=== PATIENT | female | born 1970 | race Caucasian/White ===

== ENCOUNTER 2016-11-23 12:00 | Inpatient (IN) | payer OTHER ==
--- NOTE | ~2016-11-23 | PN ---
Unit #: [id number] #: [id number] Patient: SOFYA BRADFORD [id number] [facility] [address] [place] [address] [id number] MR#: [id number] NAME: SOFYA BRADFORD. ROOM: P209 Age: 46 Sex: F Admission Date: 11/23/2016 : 1970 Attending Physician: Jevon Huber M.D. Admitting Physician: Jevon Huber M.D. Primary Care Physician: Kurt Doctor Not In System [facility] PROGRESS NOTES DATE 11/24/2016 DISCUSSION Ms. Bradford is a 46-year-old white female with mood disorder and alcohol dependence who was seen today and chart was reviewed and case was discussed with the staff. She has been anxious, withdrawn, depressed and rather seclusive to herself and described herself to be in distress and discomfort as she goes through detox. Meanwhile, she has been taking medications and tolerating them fairly well with no reported side effects. MENTAL STATUS EXAMINATION Middle-aged white female who was casually dressed with fair personal hygiene, appears to be in no acute distress or discomfort. She was awake and alert on interaction with intact orientation. Her mood was anxious and depressed with congruent affect. She reports having suicidal ideation. She denies any homicidal ideations. Also, denies any auditory or visual hallucinations. Her insight and judgement remains slightly impaired. TREATMENT PLAN 1. We will continue her on her current medications and treatment protocol. We will monitor her response to the medication and make further adjustments as needed. 2. We will continue to follow up. Dictated by... Vignesh Mckenzie/arcelia TD: 11/25/2016 03:05 JOB #: [id number] Unit #: [id number] #: [id number] Patient: SOFYA BRADFORD SUSAN PROGRESS NOTES Page 1 of 1 X Jevon Huber MD PROGRESS NOTE
--- NOTE | ~2016-11-23 | DS ---
Unit #: [id number] #: [id number] Patient: [facility] [id number] [facility] [address] [place] [address] [id number] I MR#: [id number] NAME: SOFYA BRADFORD ROOM: P209 Age: 46 Sex: F Admission Date: 11/23/2016 : 1970 Discharge Date: 11/27/2016 Attending Physician: Jevon Huber M.D. Primary Care Physician: Generic Doctor Not In System DISCHARGE SUMMARY IDENTIFYING DATA Ms. Bradford is a 46-year-old single white female who is a resident of [place], [place] and was self-referred to the hospital on a voluntary basis. DISCHARGE DIAGNOSES Psychiatric: Alcohol dependence, moderate, in acute withdrawal. Major depressive disorder, recurrent, moderate, without psychotic features. Medical: Hypertension, fibromyalgia, colitis, chronic pain. Stressors: Moderate psychosocial stressors. HISTORY OF PRESENT ILLNESS Please see initial psychiatric evaluation for details. PAST PSYCHIATRIC HISTORY Please see initial psychiatric evaluation for details. PAST MEDICAL HISTORY Please see initial psychiatric evaluation for details. HOSPITAL COURSE The [facility] and was oriented to the hospital environment. Routine p.r.n. medications were initiated and she was started back on her home medications. The medications were adjusted and she was maintained on her current regimen and alcohol detox protocol was initiated and she was closely monitored. She was taking the medications regularly, was tolerating them fairly well and was wanting to go home and wanting to come to the outpatient treatment program and was interested in the Vivitrol injection program and as such, it was decided that she will be discharged home and will step down to the outpatient treatment program. DISCHARGE CONDITION Stable. PROGNOSIS Fair. Dictated by... Jevon Huber M.D. Unit #: [id number] #: [id number] Patient: SOFYA BRADFORD IAA/modl TD: 11/27/2016 07:55 JOB #: [id number] DISCHARGE SUMMARY Page 1 of 1 X Jevon Huber MD X DISCHARGE SUMMARY
--- NOTE | ~2016-11-23 | PN ---
Unit #: [id number] #: [id number] Patient: SOFYA BRADFORD [id number] [facility] [address] [place] [address] [id number] I MR#: [id number] NAME: SOFYA BRADFORD. ROOM: P209 Age: 46 Sex: F Admission Date: 11/23/2016 : 1970 Attending Physician: Jevon Huber M.D. Admitting Physician: Jevon Huber M.D. Primary Care Physician: Kurt Doctor Not In System [facility] PROGRESS NOTES DATE 11/26/2016 DISCUSSION Ms. Bradford is a 46-year-old white female who was seen today and chart was reviewed and case was discussed with the staff. She has been anxious, withdrawn and rather seclusive to herself. Meanwhile, she has been cooperative with treatment recommendations as she has been taking the medications and tolerating them fairly well with no reported side effects. MENTAL STATUS EXAMINATION Middle-aged white female who was casually dressed with fair personal hygiene, appears to be in no acute distress or discomfort. She was awake and alert on interaction with intact orientation. Her mood was anxious with congruent affect. She denies any suicidal or homicidal ideations. Her insight and judgement remains slightly impaired. TREATMENT PLAN 1. We will continue her on her current medications and treatment protocol. We will monitor her response to the medication and make further adjustments as needed. 2. We will continue to follow up. Dictated by... Vignesh Mckenzie/arcelia TD: 11/27/2016 03:46 JOB #: [id number] Unit #: [id number] #: [id number] Patient: SOFYA BRADFORD SUSAN PROGRESS NOTES Page 1 of 1 X Jevon Huber MD X PROGRESS NOTE
--- NOTE | ~2016-11-23 | PN ---
Unit #: [id number] #: [id number] Patient: SOFYA BRADFORD [id number] [facility] [address] [place] [address] [id number] I MR#: [id number] NAME: SOFYA BRADFORD. ROOM: P209 Age: 46 Sex: F Admission Date: 11/23/2016 : 1970 Attending Physician: Jevon Huber M.D. Admitting Physician: Jevon Huber M.D. Primary Care Physician: Kurt Doctor Not In System [facility] PROGRESS NOTES DATE OF SERVICE 11/25/2016 DISCUSSION Ms. Bradford is a 46-year-old white female with alcohol dependence and mood disorder who was seen today. Chart was reviewed and case was discussed with the staff. She has been anxious and withdrawn though has not shown any agitation or irritability and has been cooperative with the treatment recommendations and has been taking the medications and tolerating them fairly well with no reported side effects. MENTAL STATUS EXAMINATION Middle-aged white female who is casually dressed with fair personal hygiene, appears to be in no acute distress or discomfort. She was awake and alert on interaction with intact orientation. Her mood is anxious with a congruent affect. Her speech is slow and restricted in content. She denies any suicidal or homicidal ideations and also denies any auditory or visual hallucinations. Her insight and judgment remain slightly impaired. TREATMENT PLAN 1. We will continue her on her current medications and treatment protocol. We will monitor her response to the medications and make further adjustments as needed. 2. We will continue to follow up. Dictated by... Vignesh Mckenzie/bhaskar TD: 11/25/2016 15:04 JOB #: [id number] Unit #: [id number] #: [id number] Patient: SOFYA BRADFORD PROGRESS NOTES Page 1 of 1 X Jevon Huber MD PROGRESS NOTE
--- NOTE | ~2016-11-23 | PA ---
Unit #: [id number] #: [id number] Patient: SOFYA BRADFORD [id number] [facility] [address] [place] [address] [id number] MR#: [id number] NAME: SOFYA BRADFORD. ROOM: P209 Age: 46 Sex: F Admission Date: 11/23/2016 : 1970 Date of Assessment: 11/23/2016 Attending Physician: Jevon Huber M.D. Admitting Physician: Jevon Huber M.D. Primary Care Physician: Generic Doctor Not In System PSYCHIATRIC ASSESSMENT DATE OF SERVICE 11/23/2016. IDENTIFYING DATA Ms. Bradford is a 46-year-old, single, white female, who is a resident of [place], [place] and was self-referred to the hospital on a voluntary basis. CHIEF COMPLAINT "I need treatment for alcoholism." HISTORY OF PRESENT ILLNESS Ms. Bradford is a 46-year-old white female, who was self-referred to the hospital, who was recently discharged from the outpatient treatment program. However, she ended up relapsing and reports that she needs help with alcoholism and "I was in the [facility] in 10/2016, but I did not complete the program. I was sober for 5 months and I relapsed a month ago. I've been drinking a fifth of vodka daily and my last drink was earlier this morning. I'm having significant withdrawal symptoms." She does report increasing depression, anxiety, irritability, restlessness, feelings of hopelessness and helplessness, and denies any current suicidal ideations, though she reports history of suicide in the past. SUBSTANCE ABUSE HISTORY The patient reports long history of alcohol dependence stating that she has been drinking ever since she was 7 years old and currently has been drinking a fifth of vodka on daily basis and denies any other drug abuse. PAST PSYCHIATRIC HISTORY The patient has had a history of multiple inpatient psychiatric and chemical dependency treatments [facility] and currently she is not active in any treatment program. Review of the medical records indicate that she is supposed to be on Prozac and Neurontin, though it is not clear if she has been compliant with medications. PAST MEDICAL HISTORY Hypertension, fibromyalgia, colitis, chronic pain. ALLERGIES Codeine and latex. PERSONAL AND SOCIAL HISTORY A 46-year-old white female, who reports that she is single and lives at Unit #: [id number] #: [id number] Patient: SOFYA BRADFORD home with her parents and has fairly decent social support system. MENTAL STATUS EXAMINATION Middle-aged white female, who was casually dressed with fair personal hygiene, appears to be in no acute distress or discomfort. She was awake and alert on interaction with intact orientation to time, place, and person. Her mood was anxious and depressed with a congruent affect. Her speech was slow and goal directed. She denies any suicidal or homicidal ideations and also denies any auditory or visual hallucinations. Her insight and judgment remain significantly impaired. DIAGNOSTIC IMPRESSION Psychiatric: Alcohol dependence, moderate and acute withdrawals; major depressive disorder, recurrent, moderate, without psychotic features. Medical: Hypertension, fibromyalgia, colitis, chronic pain. Stressors: Moderate psychosocial stressors. TREATMENT PLAN 1. The patient has presented with a history of mood disorder and substance abuse and has been decompensating and will need inpatient hospitalization for detoxification, safety, and stabilization. We will start her back on her home medications. We will adjust the medications and monitor response. 2. Supportive therapy was provided to the patient. 3. Safe, structured, and nourishing environment will be provided. ESTIMATED LENGTH OF STAY 5 to 7 days. ABILITY TO HELP SELF Limited. WILLINGNESS TO HELP SELF The patient appears to be willing to help self. STRENGTHS 1. Communicative. 2. Cooperative. PROBLEMS 1. Chronic dysphoric symptoms. 2. Poor social support system. DISCHARGE CRITERIA This will be contingent upon the patient's ability to show resolution of her depression and anxiety and her ability to stay safe to herself, particularly after discharge from the hospital. Dictated by... Jevon Huber M.D. CECY/deloris TD: 11/24/2016 08:45 Unit #: [id number] #: [id number] Patient: SOFYA BRADFORD JOB #: [id number] PSYCHIATRIC ASSESSMENT Page 1 of 1 X Jevon Huber MD X PSYCHIATRIC ASSESSMENT
--- NOTE | ~2016-11-23 | HP ---
Unit #: [id number] #: [id number] Patient: CANDICE BRADFORD [id number] [place] [address] [id number] I MR#: [id number] NAME: CANDICE BRADFORD. ROOM: P209 Age: 46 Sex: F Admission Date: 11/23/2016 : 1970 Attending Physician: Jevon Huber M.D. Admitting Physician: Jevon Huber M.D. Primary Care Physician: Kurt Doctor Not In System HISTORY AND PHYSICAL HISTORY OF PRESENT ILLNESS Candice is a 46 year old admitted to [address] [place] [address] because of her continued abuse of alcohol. PAST MEDICAL HISTORY 1. Long history of alcohol abuse. 2. Obesity. 3. High blood pressure. 4. History of migraine headaches. PAST SURGICAL HISTORY 1. Right carpal tunnel release. 2. Oral. ALLERGIES Codeine, latex. SOCIAL HISTORY Smokes 1 1/2 packs per day. Drinks a pint of vodka on a daily basis and denies illicit drug use. FAMILY HISTORY Medically noncontributory. REVIEW OF SYSTEMS CONSTITUTIONAL: No fever or chills. HEENT: Denies any sore throat, ear pain or runny nose. CARDIOVASCULAR: Denies chest pain, irregular heart rhythm or palpitations. CHEST: Denies shortness of breath or cough. No hemoptysis. GASTROINTESTINAL: Denies nausea, vomiting, diarrhea or chronic constipation. ENDOCRINE: Denies history of increased thirst or urination. No recent significant weight loss or gain. GENITOURINARY: Denies dysuria, frequency, or hematuria. SKIN: Denies any rashes. HEMATOLOGIC: Denies history of increased bleeding or bruising. MUSCULOSKELETAL: Denies any hot, swollen joints. No generalized muscle pain. NEUROLOGIC: Denies problems with vision or speech. No frequent, severe headaches. No numbness, tingling or weakness in any extremities. Denies loss of bladder or bowel control. Unit #: [id number] #: [id number] Patient: CANDICE BRADFORD CURRENT MEDICATIONS 1. Detox protocol 2. Neurontin 800 mg q.i.d. 3. Seroquel 100 mg q.h.s. 4. Amitriptyline 100 mg q.h.s. PHYSICAL EXAMINATION GENERAL: Alert, obese, in no apparent distress. VITAL SIGNS: Blood pressure 130/88, heart rate 80, respirations 16, temperature 98.6. WEIGHT: 210 pounds. SKIN: Warm and dry without rash or lesion. HEENT: Normocephalic. TMs not viewed. Oral and nasal passages clear. Conjunctivae clear. Pupils equal, round and reactive to light and accommodation. Extraocular movements intact. NECK: Supple without lymphadenopathy or thyromegaly. HEART: Regular rate and rhythm without murmur. LUNGS: Clear. ABDOMEN: Soft, nontender. : Not done. EXTREMITIES: No evidence of cyanosis, clubbing or edema. Moves all extremities without focal deficit. NEUROLOGICAL: Grossly within normal limits. Cranial Nerves: II: Visual chen are intact. III, IV AND : Extraocular movements are intact. Pupils are equal, round and reactive to light. V: Facial sensation is grossly normal. VII: Facial movements and expression are normal. VIII: Auditory acuity grossly intact. IX, X: Uvula is midline. Phonation is normal. XI: Patient shrugs shoulders and turns head normally. XII: Tongue protrudes in the midline. Sensory and Motor Function: Sensory and motor sensation is grossly normal. Motor: moves all extremities well. Coordination: Gait is normal. Deep Tendon Reflexes: Intact. IMPRESSION Psychiatric admission RECOMMENDATIONS PSYCHIATRIC: Per psychiatrist. MEDICAL: I see no contraindications to participating in facility's activities. MEDICAL PROGNOSIS Good. MEDICAL CONDITION Stable. Dictated by... Eneida Torres P.A.-C. for Vignesh Miller/arcelia Unit #: [id number] #: [id number] Patient: CANDICE BARDFORD TD: 11/24/2016 01:29 JOB #: [id number] HISTORY AND PHYSICAL Page 1 of 1 X Eneida Torres HISTORY AND PHYSICAL
--- NOTE | ~2016-11-23 | TN ---
Unit #: [id number] #: [id number] Patient: SOFYA BRADFORD [id number] [place] [address] [id number] I MR#: [id number] NAME: SOFYA BRADFORD. ROOM: P209 Age: 46 Sex: F Admission Date: 11/23/2016 : 1970 Discharge Date: 11/27/2016 Attending Physician: Jevon Huber M.D. Primary Care Physician: Generic Doctor Not In System LOC TRANSFER NOTE DATE OF SERVICE: 12/01/2016 DATE OF SERVICE 12/01/2016. HISTORY OF PRESENT ILLNESS Ms. Wu is a 46-year-old single white female, who is a resident of [place], [place], and is known to us from previous multiple encounters and was stepped down to the outpatient treatment program from the adult inpatient psychiatric and chemical dependency treatment program at [facility], where she was hospitalized under my care from 11/23/2016 to 11/27/2016 and was initially brought to the hospital with relapse on alcohol leading to increasing depression, anxiety, and suicidal thoughts and was medically detoxed from alcohol and was stepped down to the outpatient treatment program; where on evaluation by me, the patient reports that she has been doing fairly well and has had craving since she has been out of the hospital, but she has not had any relapses. She also reports improvement in her depression and anxiety and denies any current suicidal ideations, intent, or plan. SUBSTANCE ABUSE HISTORY The patient has had a history of alcohol dependence and reports that she has been drinking since she was 7 years old and currently has been drinking a fifth of vodka on a daily basis and denies any other drug abuse. PAST PSYCHIATRIC HISTORY The patient has had a history of multiple inpatient psychiatric hospitalizations as well as outpatient treatment program at [facility] and has been diagnosed and treated for mood disorder as well as alcohol dependence and is currently on a combination of Seroquel, Neurontin, and Elavil. PAST MEDICAL HISTORY The patient's medical history is significant for hypertension, fibromyalgia, colitis, and chronic pain. ALLERGIES Codeine and latex. PERSONAL AND SOCIAL HISTORY A 46-year-old white female, who reports that she is single and lives at home with her parents and has fairly decent social support system. Unit #: [id number] #: [id number] Patient: SOFYA BRADFORD MENTAL STATUS EXAMINATION Young white female, who was casually dressed with fair personal hygiene, appears to be in no acute distress or discomfort. She was awake and alert on interaction with intact orientation. Her mood was anxious and depressed with a congruent affect. She denies any suicidal or homicidal ideations and also denies any auditory or visual hallucinations. Her insight and judgment remain slightly impaired. DIAGNOSTIC IMPRESSION Psychiatric: Major depressive disorder, recurrent, moderate, without psychotic features and alcohol dependence, moderate. Medical: Hypertension, fibromyalgia, colitis, and chronic pain. Stressors: Moderate psychosocial stressors. TREATMENT PLAN 1. The patient has presented with a history of mood disorder and substance abuse and has been decompensating and will need inpatient hospitalization for safety and stabilization. We will start her back on her home medications and we will adjust the medications and monitor response. 2. Supportive therapy was provided to the patient. 3. Safe, structured, and nourishing environment will be provided. ESTIMATED LENGTH OF STAY 5 to 7 days. ABILITY TO HELP SELF Limited. WILLINGNESS TO HELP SELF The patient appears to be willing to help self. STRENGTHS 1. Communicative. 2. Cooperative. PROBLEMS 1. Chronic dysphoric symptoms. 2. Poor social support system. DISCHARGE CRITERIA This will be contingent upon the patient's ability to show resolution of her depression and anxiety and her ability to stay safe to herself, particularly after discharge from the program. Dictated by... Vignesh Mckenzie/deloris TD: 12/01/2016 20:47 JOB #: [id number] Unit #: [id number] #: [id number] Patient: SOFYA BRADFORD LOC TRANSFER NOTE Page 1 of 1 X Jevon Huber MD X LOC TRANSFER NOTE
[2016-11-24 09:44] LABS: BASOPHIL# 0.1 X10e3 (0-0.3); BASOPHIL% 0.9 % (0-2.5); EOSINOPHIL# 0.4 X10e3 (0-0.7); EOSINOPHIL% 5.1 % (0.0-7.0); HEMATOCRIT 36.3 % (35.0-45.0); HEMOGLOBIN 12.2 gm/dL (12.0-16.0); LYMPHOCYTE# 1.3 X10e3 (1.0-3.5); LYMPHOCYTE% 16.7 % (17.0-45.0); MEAN CELL VOLUME 94.1 FL (83-96); MEAN CORPUSCULAR HEMOGLOBIN 31.6 PG (28-34); MEAN CORPUSCULAR HGB CONC 33.6 g/dL (30-36); MEAN PLATELET VOLUME 7.7 FL (6.5-11.5); MONOCYTE# 0.5 X10e3 (0-1.0); NEUTROPHIL# 5.5 X10e3 (1.5-7.1); NEUTROPHIL% 70.3 % (40-75); PLATELET COUNT 347 X10e3 (140-420); RED BLOOD COUNT 3.85 X10e (3.90-5.30); RED CELL DISTRIBUTION WIDTH 14.1 % (11.0-15.5); WHITE BLOOD COUNT 7.9 X10e3 (4.0-10.5)
[2016-11-24 09:53] LABS: DIFF IND NO
[2016-11-24 10:30] LABS: ALBUMIN SERUM 3.5 g/dL (3.5-5.0); BILIRUBIN,TOTAL 0.4 mg/dL (0.2-2.0); BUN/CREATININE RATIO 21.42; CALCIUM SERUM 9.6 mg/dL (8.4-10.2); CREATININE SERUM 0.7 mg/dL (0.6-1.4); GLOM FILT RATE Estimated 103.9 mL/min (>60); POTASSIUM 4.3 mmol/L (3.5-5.1); PROTEIN TOTAL SERUM 6.6 g/dL (6.0-8.3)
[2016-11-25 12:53] LABS: URINE APPEARANCE CLEAR; URINE BILIRUBIN NEG (NEG); URINE BLOOD NEG (NEG); URINE COLOR DK YELLOW; URINE GLUCOSE NEG (NEG); URINE KETONE NEG (NEG); URINE LEUKOCYTE ESTERASE NEG (NEG); URINE NITRATE NEG (NEG); URINE PROTEIN NEG (NEG); URINE SPECIFIC GRAVITY 1.008 (1.003-1.035); URINE UROBILINOGEN 0.2 MG/DL (NEG)
[2016-11-25 13:34] LABS: AMPHETAMINE NEG (NEG); BARBITURATES NEG (NEG); BENZODIAZEPINES POS (NEG); COCAINE NEG (NEG); MARIJUANA NEG (NEG); OPIATES NEG (NEG); TRICYCLIC ANTIDEPRESSANTS POS (NEG); U METHADONE NEG (NEG)
== END 2016-11-27 10:25 | DRG 897 ==
LOC: P2S 15:01
PROVIDERS: Psychiatry & Neurology Psychiatry
PROC: HZ2ZZZZ Detoxification Services for Substance Abuse Treatment (ICD-10-PCS; principal; 2016-11-23)
DX: F10.239 Alcohol dependence with withdrawal, unspecified (principal); R45.851 Suicidal ideations; F33.1 Major depressive disorder, recurrent, moderate; I10 Essential (primary) hypertension; M79.7 Fibromyalgia; K52.9 Noninfective gastroenteritis and colitis, unspecified; G89.29 Other chronic pain; E66.9 Obesity, unspecified; Z88.5 Allergy status to narcotic agent; Z91.040 Latex allergy status; F17.210 Nicotine dependence, cigarettes, uncomplicated
CPT/HCPCS: 80053; 80307; 81003; 84703; 85025; 86592